=== PATIENT | male | born 1945 | race Caucasian/White ===

== ENCOUNTER 2017-07-17 16:02 | Emergency (ER) | payer MEDICARE ==
[~2017-07-17] VITALS: Ht 170.2 cm; Wt 71.2 kg
[~2017-07-17 16:02] MED LIST: ALPR.5; ASPI81CH PO; BUPR150ER PO; CARI350 PO; CHOL10002; DULO30 PO; ESCI10 PO; HYDACE5 PO; HYDPAM50 PO; LEVFLO500 PO; MELA3; MELA3 PO; METTREX2.5; MORP15ER; Norco 5-325 Ta1 EACH PO; OXYC15ER PO; RANI150; SIMV40 PO; ZOLP10
[2017-07-17] MEDS ORDERED: CLON1 PO (16:33)
[2017-07-17] MEDS ORDERED: OXYCODONE HCL E30 MG PO (16:34)
[2017-07-17] MEDS ORDERED: CLON2 PO (16:34)
[2017-07-17] MEDS ORDERED: OXYC30ER PO (16:35)
[2017-07-17] MEDS ORDERED: ASCO500 PO (16:38)
[2017-07-17] MEDS ORDERED: BIOTIN1000 MCG PO (16:38)
[2017-07-17] MEDS ORDERED: ANTACID MULTI-1 EACH PO (16:38)
[2017-07-17] MEDS ORDERED: Coq-10100 MG PO (16:39)
[2017-07-17] MEDS ORDERED: FOLI1 PO (16:39)
[2017-07-17] MEDS ORDERED: Glucosamine Ch1 EAC4 PO (16:40)
[2017-07-17] MEDS ORDERED: HYDSUL200 PO (16:40)
[2017-07-17] MEDS ORDERED: [UNRECOGNIZED DRUG - OTHER] PO (16:41)
[2017-07-17] MEDS ORDERED: IRON PO (16:41)
[2017-07-17] MEDS ORDERED: Magnesium500 MG PO (16:42)
[2017-07-17] MEDS ORDERED: MELA3 PO (16:42)
[2017-07-17] MEDS ORDERED: Hair, Skin & N1 EACH PO (16:42)
[2017-07-17] MEDS ORDERED: Omeprazole20 M1 PO (16:43)
[2017-07-17] MEDS ORDERED: PROBIOTIC1 EAC3 PO (16:43)
[2017-07-17] MEDS ORDERED: PRAV20 PO (16:43)
[2017-07-17] MEDS ORDERED: POLYOX WSR-3011 GM PO (16:43)
[2017-07-17] MEDS ORDERED: QUET100 PO (16:44)
[2017-07-17] MEDS ORDERED: Vitamin B Comple1 EA PO (16:59)
[2017-07-17] MEDS ORDERED: RANI150 PO (16:59)
[2017-07-17] MEDS ORDERED: CHOL10002 PO (16:59)
[2017-07-17] MEDS ORDERED: TUMERIC PO (17:00)
[2017-07-17 17:20] LABS: Calcium, Ionized (POC) 1.12 mmol/L (1.10-1.46); Chloride (POC) 94 mmol/L (98-108); Creatinine (POC) 1.5 mg/dL (0.8-1.3); Glucose (ISTAT POC) 113 mg/dL (70-99); Hemoglobin (POC) 10.2 g/dL (13.5-17.5); Potassium (POC) 4.9 mmol/L (3.5-5.5); Sodium (POC) 133 mmol/L (135-148); Total CO2 (POC) 27 mmol/L (21-32)
== END 2017-07-17 17:44 | disposition home or self-care (01) ==
LOC: ER 16:02
PROVIDERS: Internal Medicine
DX: T40.2X1A Poisoning by other opioids, accidental (unintentional), initial encounter (principal); Z88.2 Allergy status to sulfonamides; Z88.8 Allergy status to other drugs, medicaments and biological substances; Z79.899 Other long term (current) drug therapy; Z79.82 Long term (current) use of aspirin; Z79.891 Long term (current) use of opiate analgesic; Z79.2 Long term (current) use of antibiotics; F41.9 Anxiety disorder, unspecified; F32.9 Major depressive disorder, single episode, unspecified; E78.00 Pure hypercholesterolemia, unspecified; Z87.891 Personal history of nicotine dependence
CPT/HCPCS: 51102; 80047; 85014; 99283; C2627

== ENCOUNTER 2017-08-18 18:06 | Emergency (ER) | payer MEDICARE ==
[~2017-08-18] VITALS: Ht 170.2 cm; Wt 70.3 kg
[~2017-08-18 18:06] MED LIST changes: +ANTACID MULTI-1 EACH PO; +ASCO500 PO; +BIOTIN1000 MCG PO; +CHOL10002 PO; +CLON1 PO; +CLON2 PO; +Coq-10100 MG PO; +FOLI1 PO; +Glucosamine Ch1 EAC4 PO; +HYDSUL200 PO; +Hair, Skin & N1 EACH PO; +IRON PO; +Magnesium500 MG PO; +OXYC30ER PO; +OXYCODONE HCL E30 MG PO; +Omeprazole20 M1 PO; +POLYOX WSR-3011 GM PO; +PRAV20 PO; +PROBIOTIC1 EAC3 PO; +QUET100 PO; +RANI150 PO; +TUMERIC PO; +Vitamin B Comple1 EA PO; +[UNRECOGNIZED DRUG - OTHER] PO
== END 2017-08-18 19:26 | disposition home or self-care (01) ==
LOC: ER 18:06
DX: R41.82 Altered mental status, unspecified (principal); M54.5 Low back pain; G89.29 Other chronic pain; Z87.891 Personal history of nicotine dependence
CPT/HCPCS: 36415; 99283

== ENCOUNTER 2017-09-14 13:55 | Day surgery (SDC) | payer MEDICARE ==
[~2017-09-14] VITALS: Ht 170.2 cm; Wt 70.8 kg
== END 2017-09-14 15:25 | disposition home or self-care (01) ==
LOC: ORSCSDS 13:55
PROVIDERS: Internal Medicine Gastroenterology
PROC: 0DB58ZX Excision of Esophagus, Via Natural or Artificial Opening Endoscopic, Diagnostic (ICD-10-PCS; principal; 2017-09-14 15:15)
PROC: 0DB68ZX Excision of Stomach, Via Natural or Artificial Opening Endoscopic, Diagnostic (ICD-10-PCS; principal; 2017-09-14 15:15)
DX: K21.9 Gastro-esophageal reflux disease without esophagitis (principal); K29.50 Unspecified chronic gastritis without bleeding; L53.9 Erythematous condition, unspecified; R11.10 Vomiting, unspecified; F41.8 Other specified anxiety disorders; G47.30 Sleep apnea, unspecified; E78.00 Pure hypercholesterolemia, unspecified; Z87.891 Personal history of nicotine dependence; Z79.82 Long term (current) use of aspirin; Z79.899 Other long term (current) drug therapy
CPT/HCPCS: 88305; 88342

== ENCOUNTER → 2019-03-02 | Outpatient (CLI) | payer MEDICARE ==
[~2019-03-02] MED LIST changes: +ALPR.5 PO; +Alprazolam0.5 MG PO; +BUPR100ER PO; +Clonazepam0.5 MG; +MELATONIN5 M1 PO; +ONDA4ODT MM; +TRAM50 PO; +UBID10 PO; +VITAMIN D35000 UNI2 PO; +VOLTAREN100 GM TOP; +ZOLP10 PO; +Zantac150 MG PO
[2019-03-02 16:18] LABS: Appearance, Urine Clear (Clear); Bilirubin, Urine Neg (Neg); Blood, Urine 2+ (Neg); Color, Urine Yellow (P-Yellow); Glucose Qualitative, Urine Neg (Neg); Ketones, Urine Neg (Neg); Leukocyte Esterase, Urine Neg (Neg); Nitrite, Urine Neg (Neg); Protein, Urine 1+ (Neg); Specific Gravity, Urine 1.015 (1.003-1.022); Urobilinogen, Urine NORM (Normal)
[2019-03-02 16:36] LABS: Bacteria Few /hpf; Red Blood Cells, Urine Rare /hpf (0-2); Squamous Epithelial Cells Not Seen /hpf (Few); White Blood Cells, Urine Not Seen /hpf (0-5)
[2019-03-03 13:11] LABS: Stool Occult Bld Immuno 1 Negative (NEGATIVE); Stool Occult Bld Immuno 2 Negative (NEGATIVE); Stool Occult Bld Immuno 3 Negative (NEGATIVE)
== END | disposition home or self-care (01) ==
LOC: OLS 14:38 → LAB SHORT 14:38
PROVIDERS: Internal Medicine
DX: Z12.11 Encounter for screening for malignant neoplasm of colon (principal); N39.0 Urinary tract infection, site not specified
CPT/HCPCS: 81001; G0328

== ENCOUNTER 2019-03-21 13:44 | Emergency (ER) | payer MEDICARE ==
[~2019-03-21] VITALS: Ht 170.2 cm; Wt 63.5 kg
[~2019-03-21 13:44] MED LIST changes: -ALPR.5 PO; -Alprazolam0.5 MG PO; -BUPR100ER PO; -Clonazepam0.5 MG; -MELATONIN5 M1 PO; -ONDA4ODT MM; -TRAM50 PO; -UBID10 PO; -VITAMIN D35000 UNI2 PO; -VOLTAREN100 GM TOP; -ZOLP10 PO; -Zantac150 MG PO
[2019-03-21 14:27] LABS: BASOPHILS ABSOLUTE AUTO 0.06 K/mm3 (0.00-0.23); BASOPHILS PERCENT AUTO 1 % (0-2); EOSINOPHILS ABSOLUTE AUTO 0.23 K/mm3 (0.00-0.68); EOSINOPHILS PERCENT AUTO 3 % (0-6); Hematocrit 40.2 % (37.0-53.0); Hemoglobin 13.3 g/dL (13.5-17.5); IMMATURE GRAN ABSOLUTE AUTO 0.02 K/mm3 (0.00-0.10); IMMATURE GRAN PERCENT AUTO 0 % (0-1); LYMPHOCYTES PERCENT AUTO 25 % (21-46); MONOCYTES ABSOLUTE AUTO 0.73 K/mm3 (0.16-1.47); MONOCYTES PERCENT AUTO 11 % (4-13); Mean Corpuscular HGB 28.9 pg (26.0-34.0); Mean Corpuscular HGB Conc 33.1 g/dL (31.5-36.5); Mean Corpuscular Volume 87 fL (80-100); Mean Platelet Volume 11.7 fL (9.1-12.4); NEUTROPHILS PERCENT AUTO 59 % (41-73); Platelet Count 192 K/mm3 (150-400); RDW Coefficient Variation 14.1 % (11.7-14.2); RDW Standard Deviation 45.1 fL (35.1-46.3); White Blood Cell Count 6.74 K/mm3 (4.00-11.30)
[2019-03-21 14:47] LABS: Albumin/Globulin Ratio 1.3 (0.8-1.8); Bilirubin, Total 0.6 mg/dL (0.1-1.0); Bun/Creatinine Ratio 14.2 (12.0-20.0); Calcium, Blood 9.4 mg/dL (8.5-10.1); Creatinine, Blood 1.27 mg/dL (0.60-1.20); Potassium, Blood 4.1 mmol/L (3.5-5.5)
[2019-03-21] MEDS ORDERED: ZOLP10 PO (15:36)
[2019-03-21] MEDS ORDERED: TRAM50 PO (15:37)
[2019-03-21] MEDS ORDERED: ASPI81CH PO (15:37)
[2019-03-21] MEDS ORDERED: MELATONIN5 M1 PO (15:38)
[2019-03-21] MEDS ORDERED: VITAMIN D35000 UNI2 PO (15:38)
[2019-03-21] MEDS ORDERED: Alprazolam0.5 MG PO (15:39)
[2019-03-21] MEDS ORDERED: ALPR.5 PO (15:39)
[2019-03-21] MEDS ORDERED: QUET100 PO (15:40)
[2019-03-21] MEDS ORDERED: HYDPAM50 PO (15:40)
[2019-03-21] MEDS ORDERED: UBID10 PO (15:40)
[2019-03-21] MEDS ORDERED: PRAV20 PO (15:41)
[2019-03-21] MEDS ORDERED: VOLTAREN100 GM TOP (15:41)
[2019-03-21] MEDS ORDERED: BUPR100ER PO (15:42)
[2019-03-21] MEDS ORDERED: HYDSUL200 PO (15:42)
[2019-03-21] MEDS ORDERED: Zantac150 MG PO (15:43)
[2019-03-21] MEDS ORDERED: Clonazepam0.5 MG (15:43)
[2019-03-21] MEDS ORDERED: ONDA4ODT MM (16:34)
== END 2019-03-21 16:47 | disposition home or self-care (01) ==
LOC: ER 13:44
PROVIDERS: Physician Assistant
DX: K59.00 Constipation, unspecified (principal); R11.10 Vomiting, unspecified; Z88.2 Allergy status to sulfonamides; Z88.8 Allergy status to other drugs, medicaments and biological substances; Z79.899 Other long term (current) drug therapy; F41.9 Anxiety disorder, unspecified; F32.9 Major depressive disorder, single episode, unspecified; E78.00 Pure hypercholesterolemia, unspecified; Z87.891 Personal history of nicotine dependence
CPT/HCPCS: 36415; 74019; 80053; 83690; 85025; 96374; 99283-25; J2405